=== PATIENT | male | born 1950 | race Caucasian/White ===

== ENCOUNTER 2018-12-15 18:13 | Emergency (ER) | payer MEDICARE, BC ==
[~2018-12-15] VITALS: Ht 172.7 cm; Wt 72.6 kg
[2018-12-15] MEDS ORDERED: LIDOCAINE 2% (UROJET) 10 ML JELLY MM ONE ×2 (18:15→18:18)
--- NOTE | 2018-12-15 18:26 | NUR ---
PT A/OX4, PRESENTS TO THE ER C/O URINARY RETENTION. PT REPORTS LAST URINATION 2 HOURS AGO, FEELS SENSE OF FULLNESS. VSS. PT DENIES C/P, SOB, N/V/D, DIZZINESS, HEADACHE. ER MD AT BEDSIDE FOR MSE.
--- NOTE | 2018-12-15 18:39 | NUR ---
Patient discharged to home in stable conditon. Written and verbal after care instructions given. Patient verbalizes understanding of instructions. PT D/C W/ MORTON CATH AND LEG BAG. VSS. ALL BELONGINGS W/ PT. PT SELF-AMBULATED W/O DIFFICULTY.
[2018-12-15 18:43] VITALS: BP 120/68
== END 2018-12-15 18:44 | disposition home or self-care (01) ==
LOC: ER 18:14
DX: R33.9 Retention of urine, unspecified (principal)
CPT/HCPCS: 51702; A4663

== ENCOUNTER 2022-12-22 21:05 | Emergency (ER) | payer MEDICARE, BC ==
[~2022-12-22] VITALS: Ht 167.6 cm; Wt 75.7 kg
--- NOTE | 2022-12-22 21:28 | NUR ---
Patient palced in room 1A. Patient's son at bedside.
[2022-12-22] MEDS ORDERED: LIDOCAINE 1%-EPI 1:100,000 20 ML VIAL ONE (23:06)
--- NOTE | 2022-12-22 23:13 | NUR ---
Dr. Chandler at bedside. MSE in progress.
[2022-12-22] MEDS ORDERED: LIDOCAINE 1%-EPI 1:100,000 20 ML VIAL IJ ONE (23:15)
[2022-12-22] MEDS ORDERED: TDAP DIPH,PERTUSS,TET VAC/PF 0.5 ML DISP.SYRIN IM ONE ×2 (23:15→23:41)
--- NOTE | 2022-12-23 00:15 | NUR ---
Patient discharged to home in stable condition. Written and verbal after care instructions given. Patient verbalizes understanding of instructions. Stressed follow up or return to ER for worsening s/s.
[2022-12-23 02:26] VITALS: BP 130/75
== END 2022-12-23 00:15 | disposition home or self-care (01) ==
LOC: ER 21:05
DX: S01.81XA Laceration without foreign body of other part of head, initial encounter (principal); W22.09XA Striking against other stationary object, initial encounter; Y92.89 Other specified places as the place of occurrence of the external cause
CPT/HCPCS: 99283; 12011; 90715; 90471; J3490; A4663

== ENCOUNTER 2022-12-29 12:36 | Emergency (ER) | payer MEDICARE, BC ==
[~2022-12-29] VITALS: Ht 167.6 cm; Wt 75.7 kg
--- NOTE | 2022-12-29 12:52 | NUR ---
Sutures removed from forehead.
--- NOTE | 2022-12-29 12:54 | NUR ---
Patient discharged to home in stable condition. Verbal after care instructions given. Patient verbalizes understanding of instructions. Stressed follow up or return to ER for worsening s/s.
[2022-12-29 12:55] VITALS: BP 110/72
== END 2022-12-29 12:56 | disposition home or self-care (01) ==
LOC: ER 12:36
DX: S01.81XD Laceration without foreign body of other part of head, subsequent encounter (principal); X58.XXXD Exposure to other specified factors, subsequent encounter
CPT/HCPCS: A4663